=== PATIENT | female | born 1955 | race American Indian/Alaskan Native ===

== ENCOUNTER 2020-09-25 18:11 | Emergency (ER) | payer SELFPAY ==
[2020-09-25] MEDS ORDERED: oxyCODONE /ACETAMINOPHEN 5-325MG TAB PO ONE (19:56)
[2020-09-25] MEDS ORDERED: predniSONE 20 MG TAB PO ONE (19:56)
[2020-09-25] MEDS ORDERED: ONDANSETRON 4 MG ODT TAB PO ONE (19:56)
[2020-09-25] MEDS ORDERED: IBUPROFEN 600 MG TAB PO ONE (19:56)
--- NOTE | 2020-09-25 20:52 | XRay Report ---
LEFT HIP 3 VIEW(S) INDICATION / CLINICAL INFORMATION: Left hip pain after fall COMPARISON: None available. FINDINGS: BONES / JOINT(S): No acute fracture or subluxation. No significant arthritis. SOFT TISSUES: No significant abnormality. ADDITIONAL FINDINGS: None. Signer Name: Darin Queen MD Signed: 09/25/2020 8:48 PM Workstation Name: [id number]
--- NOTE | 2020-09-25 20:53 | XRay Report ---
RIGHT KNEE 4 VIEW(S) INDICATION / CLINICAL INFORMATION: Right knee pain after fall COMPARISON: None available. FINDINGS: BONES / JOINT(S): No acute fracture or subluxation. Moderate tricompartmental degenerative arthrosis. SOFT TISSUES: No significant abnormality. ADDITIONAL FINDINGS: None. Signer Name: Darin Queen MD Signed: 09/25/2020 8:49 PM Workstation [facility]: [id number]
--- NOTE | 2020-09-25 20:53 | XRay Report ---
LUMBAR SPINE 2 VIEWS INDICATION / CLINICAL INFORMATION: Back pain after fall. COMPARISON: None available. FINDINGS: VERTEBRAE: No fracture. No significant malalignment. DISC SPACES:Mild discogenic degenerative disease L1-3 and L4-5 FACET JOINTS:No significant abnormality. ADDITIONAL FINDINGS: None. IMPRESSION: 1. No significant abnormality. Signer Name: Darin Queen MD Signed: 09/25/2020 8:48 PM Workstation Name: [id number]
--- NOTE | 2020-09-25 22:11 | Emergency Department Report ---
ED Fall HPI - General Chief Complaint: Extremity Injury, Lower Stated Complaint: BACK/LT LEG PAIN Source: patient Mode of arrival: Wheelchair - History of Present Illness Initial Comments: Patient is a 64-year-old -[place] female with a history of chronic osteoarthritis, hypertension, asthma who presents to the ED with complaint of acute onset persistent severe right knee pain, low back pain and left hip pain after she lost balance and fell down 2 days ago, worse in the last 12 hours. Patient states that she has been following up with because of right knee complications from chronic osteoarthritis. Patient states that her symptoms have worsened especially in the last 12 hours as she is unable to bear weight on the right knee. Patient denies dizziness, syncope, chest pain, shortness of breath, numbness and tingling or weakness of lower extremities bilaterally, neck pain, chest pain, headache, dizziness, loss of consciousness or abdominal pain. 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 (2) Fall Witnessed: yes, by family Place Fall Occurred: home Loss of Consciousness: none Prolonged Down Time?: no Symptoms Prior to Fall: none Location: back (lower) Location - Extremities: Right: Knee (pain) Severity: severe Severity scale (0 -10): 8 Quality: sharp, aching Context: tripped/slipped Associated Symptoms: denies: denies, headache, neck pain, numbness, weakness, chest paint, shortness of breath, abdominal pain, hematuria, lightheaded, vertigo, confusion - Related Data Previous Rx's Medication Instructions Recorded Last Taken Type Naproxen 500 mg PO Q12H PRN #30 tablet 09/25/20 Unknown Rx predniSONE [Deltasone] 40 mg PO QDAY #12 tab 09/25/20 Unknown Rx traMADoL [Ultram] 50 mg PO Q6HR PRN #12 tablet 09/25/20 Unknown Rx Allergies Allergy/AdvReac Type Severity Reaction Status Date / Time lisinopril Allergy Angioedema Verified 09/25/20 18:32 metronidazole [From Flagyl] Allergy Angioedema Verified 09/25/20 18:32 ED Review of Systems ROS: Stated complaint: BACK/LT LEG PAIN Other details as noted in HPI Constitutional: denies: chills, fever Eyes: denies: eye pain, eye discharge, vision change ENT: denies: ear pain, throat pain Respiratory: denies: cough, shortness of breath, wheezing Cardiovascular: denies: chest pain, palpitations Endocrine: no symptoms reported Gastrointestinal: denies: abdominal pain, nausea, vomiting, diarrhea Genitourinary: denies: urgency, dysuria, discharge Musculoskeletal: back pain (lower), arthralgia (right knee), other (left hip pain). denies: joint swelling Skin: denies: rash, lesions Neurological: denies: headache, weakness, paresthesias Psychiatric: denies: anxiety, depression Hematological/Lymphatic: denies: easy bleeding, easy bruising ED Past Medical Hx - Past Medical History Hx Hypertension: Yes Hx Diabetes: Yes Hx Asthma: Yes Additional medical history: KNEE - Surgical History Additional Surgical History: TUBES TIED - Social History Smoking Status: Never Smoker Substance Use Type: None - Medications Home Medications: Home Medications Medication Instructions Recorded Confirmed Last Taken Type Naproxen 500 mg PO Q12H PRN #30 tablet 09/25/20 Unknown Rx predniSONE [Deltasone] 40 mg PO QDAY #12 tab 09/25/20 Unknown Rx traMADoL [Ultram] 50 mg PO Q6HR PRN #12 tablet 09/25/20 Unknown Rx ED Physical Exam - General Limitations: No Limitations General appearance: alert, in no apparent distress - Head Head exam: Present: atraumatic, normocephalic, normal inspection - Eye Eye exam: Present: normal appearance, PERRL, EOMI - ENT ENT exam: Present: normal exam, normal orophraynx, mucous membranes moist, TM's normal bilaterally, normal external ear exam - Neck Neck exam: Present: normal inspection, full ROM - Respiratory Respiratory exam: Present: normal lung sounds bilaterally. Absent: respiratory distress, wheezes, chest wall tenderness, accessory muscle use, decreased breath sounds, prolonged expiratory - Cardiovascular Cardiovascular Exam: Present: regular rate, normal rhythm, normal heart sounds. Absent: systolic murmur, diastolic murmur, rubs, gallop - GI/Abdominal GI/Abdominal exam: Present: soft, normal bowel sounds. Absent: tenderness, guarding, rebound, hyperactive bowel sounds, organomegaly, mass - Extremities Exam Extremities exam: Present: normal inspection, full ROM, tenderness (Palpable severe left hip and right knee tenderness), normal capillary refill - Back Exam Back exam: Present: normal inspection, full ROM, tenderness (Palpable lumbosacral paraspinal musculoskeletal tenderness), muscle spasm, paraspinal tenderness. Absent: CVA tenderness (L), vertebral tenderness - Neurological Exam Neurological exam: Present: alert, oriented X3, CN II-XII intact, normal gait, reflexes normal - Psychiatric Psychiatric exam: Present: normal affect, normal mood - Skin Skin exam: Present: warm, dry, intact, normal color. Absent: rash ED Course Vital Signs 09/25/20 09/25/20 09/25/20 18:36 20:52 20:53 Temperature 99.7 F H Pulse Rate 87 Respiratory 20 18 18 Rate Blood Pressure 152/107 Blood Pressure [Right] O2 Sat by Pulse 98 Oximetry 09/25/20 09/25/20 09/25/20 21:52 21:53 22:24 Temperature 97.8 F Pulse Rate 80 Respiratory 18 18 16 Rate Blood Pressure Blood Pressure 136/79 [Right] O2 Sat by Pulse 100 Oximetry ED Medical Decision Making - Radiology Data Radiology results: report reviewed, [place] [address] XRay Report Signed Patient: MARK ELIZONDO MR#: [id number] : 1955 Acct:[id number] Age/Sex: 64 / F ADM Date: 09/25/20 Loc: ED Attending Dr: Ordering Physician: JOVANNY SHAFER Date of Service: 09/25/20 Procedure(s): XR spine lumbosacral 2-3V Accession Number(s): [id number] cc: JOVANNY SHAFER Fluoro Time In Minutes: LUMBAR SPINE 2 VIEWS INDICATION / CLINICAL INFORMATION: Back pain after fall. COMPARISON: None available. FINDINGS: VERTEBRAE: No fracture. No significant malalignment. DISC SPACES:Mild discogenic degenerative disease L1-3 and L4-5 FACET JOINTS:No significant abnormality. ADDITIONAL FINDINGS: None. IMPRESSION: 1. No significant abnormality. Signer Name: Darin Queen MD Signed: 09/25/2020 8:48 PM Workstation Name: [id number] Transcribed By: TL Dictated By: Darin Queen MD Electronically Authenticated By: Darin Queen MD Signed Date/Time: 09/25/202047 DD/ 47 TD/TT: Print [facility] [address] [place] [address] XRay Report Signed Patient: MARK ELIZONDO MR#: [id number] : 1955 Acct:[id number] Age/Sex: 64 / F ADM Date: 09/25/20 Loc: ED Attending Dr: Ordering Physician: JOVANNY SHAFER Date of Service: 09/25/20 Procedure(s): XR knee 3V RT Accession Number(s): [id number] cc: JOVANNY SHAFER Fluoro Time In Minutes: RIGHT KNEE 4 VIEW(S) INDICATION / CLINICAL INFORMATION: Right knee pain after fall COMPARISON: None available. FINDINGS: BONES / JOINT(S): No acute fracture or subluxation. Moderate tricompartmental degenerative arthrosis. SOFT TISSUES: No significant abnormality. ADDITIONAL FINDINGS: None. Signer Name: Darin Queen MD Signed: 09/25/2020 8:49 PM Workstation Name: [id number] Transcribed By: TL Dictated By: Darin Queen MD Electronically Authenticated By: Darin Queen MD Signed Date/Time: 09/25/202048 DD/ 48 TD/TT: [facility] [address] [place] [address] XRay Report Signed Patient: MARK ELIZONDO MR#: [id number] : 1955 Acct:[id number] Age/Sex: 64 / F ADM Date: 09/25/20 Loc: ED Attending Dr: Ordering Physician: JOVANNY SHAFER Date of Service: 09/25/20 Procedure(s): XR hip 2-3V LT Accession Number(s): [id number] cc: JOVANNY SHAFER Fluoro Time In Minutes: LEFT HIP 3 VIEW(S) INDICATION / CLINICAL INFORMATION: Left hip pain after fall COMPARISON: None available. FINDINGS: BONES / JOINT(S): No acute fracture or subluxation. No significant arthritis. SOFT TISSUES: No significant abnormality. ADDITIONAL FINDINGS: None. Signer Name: Darin Queen MD Signed: 09/25/2020 8:48 PM Workstation Name: [id number] Transcribed By: TL Dictated By: Darin Queen MD Electronically Authenticated By: Darin Queen MD Signed Date/Time: 09/25/202047 DD/ 46 TD/TT: - Medical Decision Making This is a 64-year-old -[place] female with a history of chronic osteoarthritis, hypertension, asthma who presents to the ED with complaint of acute onset persistent severe right knee pain, low back pain and left hip pain after she lost balance and fell down 2 days ago, worse in the last 12 hours. Patient states that she has been following up with because of right knee complications from chronic osteoarthritis. Patient states that her symptoms have worsened especially in the last 12 hours as she is unable to bear weight on the right knee. In the ED, patient is alert and oriented x3 and is not in distress. Patient was treated for pain in the ED and right knee x-ray shows no acute fractures or subluxation. The L-spine x-ray also shows no acute fractures and subluxations and the left hip x-ray also shows no acute fractures and subluxations. Therefore the patient was discharged home on pain medications and muscle relaxants and was advised to follow-up with her primary care physician in 5 to 7 days for reevaluation or return to the ED immediately if symptoms get worse. - Differential Diagnosis Chronic osteoarthritis; muscle strain; muscle spasm; joint sprain Critical care attestation.: If time is entered above; I have spent that time in minutes in the direct care of this critically ill patient, excluding procedure time. ED Disposition Clinical Impression: Chronic osteoarthritis, Right anterior knee pain, Contusion of left hip region Chronic low back pain with sciatica Qualifiers: Back pain laterality: bilateral Sciatica laterality: sciatica of left side Qualified Code(s): M54.42 - Lumbago with sciatica, left side Disposition: TO HOME OR SELFCARE Is pt being admited?: No Does the pt Need Aspirin: No Condition: Stable Instructions: Chronic Knee Pain, Adult, [id number], Arthritis, [id number], Sciatica, [id number], Contusion, [id number] Additional Instructions: All imaging test results showed no acute fractures or subluxations. Therefore take medications with food, drink plenty of fluids and follow up with your Primary care Physician in 7-10 days for reevaluation. Return to the ED immediately if symptoms get worse. Prescriptions: predniSONE [Deltasone] 40 mg PO QDAY #12 tab Naproxen 500 mg PO Q12H PRN #30 tablet PRN Reason: Pain , Severe (7-10) traMADoL [Ultram] 50 mg PO Q6HR PRN #12 tablet PRN Reason: Pain Referrals: WHITLEY LOPEZ MD [Primary Care Provider] - 3-5 Days Time of Disposition: 22:09 Print Language: UGANDAN
[2020-09-25 22:25] VITALS: BP 136/79
== END 2020-09-25 22:27 | disposition home or self-care (01) ==
LOC: ED 18:11
DX: S70.02XA Contusion of left hip, initial encounter (principal); M54.42 Lumbago with sciatica, left side; M19.90 Unspecified osteoarthritis, unspecified site; M25.561 Pain in right knee; I10 Essential (primary) hypertension; E11.9 Type 2 diabetes mellitus without complications; J45.909 Unspecified asthma, uncomplicated; Z88.8 Allergy status to other drugs, medicaments and biological substances; Z79.899 Other long term (current) drug therapy; Z98.890 Other specified postprocedural states; X58.XXXA Exposure to other specified factors, initial encounter; Y93.89 Activity, other specified; Y92.099 Unspecified place in other non-institutional residence as the place of occurrence of the external cause; Y99.8 Other external cause status
CPT/HCPCS: 72100; 73502; 73562; 99283; J7512; Q0162